=== PATIENT | male | born 1980 | race Caucasian/White ===

== ENCOUNTER 2021-04-30 14:24 | Emergency (ER) | payer BC ==
--- NOTE | 2021-04-30 15:19 | EDM.PDOC ---
ED HPI GENERAL MEDICAL PROBLEM - General Chief Complaint: Respiratory Problem Stated Complaint: THROAT PAIN, DIFFICULTY SWALLOWING BREATHING Time Seen by Provider: 04/30/21 15:00 Source of Information: Reports: Patient, Family, RN Notes Reviewed History Limitations: Reports: No Limitations - History of Present Illness INITIAL COMMENTS - FREE TEXT/NARRATIVE: 40-year-old gentleman presents emergency department today with piece of food caught in his throat, he has had difficulty with this in the past is been going on for about a year is progressively getting worse fortunately the bolus has passed he is now able to swallow all of his secretions and was able to pass water without difficulty. - Related Data Allergies Allergy/AdvReac Type Severity Reaction Status Date / Time No Known Allergies Allergy Verified 04/30/21 15:01 Home Meds: Home Meds Methylphenidate [Ritalin] 10 mg PO DAILY 04/30/21 [History] Secukinumab [Cosentyx Pen (2 Pens)] 1 pen IM ONCALL 04/30/21 [History] Past Medical History Psychiatric History: Reports: ADHD - Past Surgical History GI Surgical History: Reports: Hernia Repair/Other Social & Family History - Tobacco Use Tobacco Use Status *Q: Never Tobacco User - Caffeine Use Caffeine Use: Reports: Coffee - Recreational Drug Use Recreational Drug Use: No ED ROS GENERAL - Review of Systems Review Of Systems: See Below Constitutional: Reports: No Symptoms GI/Abdominal: Reports: Difficulty Swallowing ED EXAM, GENERAL - Physical Exam Exam: See Below Exam Limited By: No Limitations General Appearance: Alert, WD/WN, No Apparent Distress Respiratory/Chest: No Respiratory Distress, Lungs Clear, Normal Breath Sounds, No Accessory Muscle Use, Chest Non-Tender Cardiovascular: Regular Rate, Rhythm, No Murmur GI/Abdominal: Soft, Non-Tender Course - Vital Signs Last Recorded V/S: Last Vital Signs Temp 98.2 F 04/30/21 15:06 Pulse 67 04/30/21 15:06 Resp 18 04/30/21 15:06 BP 114/67 04/30/21 15:06 Pulse Ox 98 04/30/21 15:06 Departure - Departure Time of Disposition: 15:18 Disposition: Home, Self-Care 01 Condition: Fair Clinical Impression: Dysphagia Qualifiers: Dysphagia type: esophageal phase Qualified Code(s): R13.19 - Other dysphagia - Discharge Information Instructions: Dysphagia Eating Plan, Bite Size Food Referrals: PCP,None [Primary Care Provider] - Additional Instructions: Please contact your primary care and follow-up at home for further evaluation call or return to the emergency department worsening symptoms Sepsis Event Note (ED) - Evaluation Sepsis Screening Result: No Definite Risk - Focused Exam Vital Signs: Vital Signs Temp Pulse Resp BP Pulse Ox 04/30/21 15:06 98.2 F 67 18 114/67 98 04/30/21 14:54 98.2 F 67 18 114/67 98 - Assessment/Plan Plan: Assessment Acuity = acute Site and laterality = dysphagia Etiology = unknown Manifestations = none Location of injury = Home Lab values = none Plan I did offer him an EGD with surgery however he preferred to follow-up at home for this procedure he will be leaving tomorrow This note was dictated using [employer] voice recognition software please call with any questions on syntax or grammar.
== END 2021-04-30 15:33 | disposition home or self-care (01) ==
LOC: JP.ED 14:24
DX: R13.19 Other dysphagia (principal)
CPT/HCPCS: 99283